=== PATIENT | male | born 1970 | race Caucasian/White ===

== ENCOUNTER 2024-03-26 08:42 | Outpatient (CLI) | payer OTHER, SELFPAY ==
--- NOTE | 2024-03-26 10:57 | W.ANESCHARGE ---
Anesthesia Charges Start Date/Time Anesthesia Start Date: 03/26/24 Anesthesia Start Time: 10:25 Stop Date/Time Anesthesia Stop Date: 03/26/24 Anesthesia Stop Time: 10:54
--- NOTE | 2024-03-26 11:22 | W.ANESCHARGE ---
Anesthesia Charges Start Date/Time Anesthesia Start Date: 03/26/24 Anesthesia Start Time: 10:25 Stop Date/Time Anesthesia Stop Date: 03/26/24 Anesthesia Stop Time: 10:54
== END 2024-03-26 08:43 | disposition home or self-care (01) ==
PROVIDERS: PCP Family Medicine; Visit Provider Internal Medicine Gastroenterology
DX: Z12.11 Encounter for screening for malignant neoplasm of colon (principal); D12.8 Benign neoplasm of rectum; Z86.0101 Personal history of adenomatous and serrated colon polyps
CPT/HCPCS: 00811; 45385; 88305; J2704

== ENCOUNTER 2024-10-25 19:43 | Emergency (ER) | payer OTHER, SELFPAY ==
--- OUTSIDE RECORDS SUMMARY | 2024-10-25 19:46 | XMS_ITS | Clinical Summary ---
Author Organization [facility] Address [address] [place] [address] Care Team Providers Care Bindery Assistant Name Role Phone Mami Rich DO Primary Care Provider Allergies Active Allergy Reactions Criticality Noted Date Comments Ragweed 06/10/2007 Medications aspirin (ECOTRIN) 81 mg enteric coated tablet Take 1 tablet by mouth once daily with a meal. 0 7 Active blood-glucose meterIndications :Type 2 diabetes mellitus without complication, without long-term current use of insulin (HC) Dispense meter, test strips, lancets covered by pt ins. E11.9 NIDDM type II - Test 2 times/day. Reason: High A1C 1 Device 8 Active meclizine (ANTIVERT) 12.5 mg tablet 1 Active polyethylene glycol-electroly te (GOLYTELY) 236-22.74-6.74 -5.86 gram suspensionIndica tions:History of colonic polyps Drink 2 liters the day before colonoscopy and 2 liters 6 hours before colonoscopy appointment 4000 mL 4 Active atorvastatin (LIPITOR) 10 mg tabletIndication s:Type 2 diabetes mellitus without complication, without long-term current use of insulin (HC) Take 1 Tablet (10 mg) by mouth once daily with evening meal. 90 Tablet 3 4 Active semaglutide (OZEMPIC) 1 mg/dose (4 mg/3 mL) subcutaneous penIndications:T ype 2 diabetes mellitus without complication, without long-term current use of insulin (HC) Inject 1 mg subcutaneous once weekly. 9 mL 4 4 Active metroNIDAZOLE 0.75 % gelIndications:R osacea, unspecified Apply topically to affected area(s) two times daily. 45 g 3 4 Active Active Problems Problem Noted Date Diagnosed Date History of patellar fracture 04/23/2024 Patellofemoral arthritis of right knee 5 Loose body in knee, right 04/23/2024 Right shoulder pain 10/27/2018 Acute bursitis of right shoulder 10/27/2018 Capsulitis of right shoulder 10/27/2018 Erectile dysfunction following radical prostatec enriqueta 04/30/2017 Elevated PSA 02/28/2016 Hyperlipidemia LDL goal < 100 01/17/2015 Diabetes mellitus type 2, uncomplicated 01/18/20 15 Personal history of colonic polyps 04/09/2013 Overview (03/31/2024): Colonoscopy 03/2013 normal repeat in 5 years Colonoscopy 02/2018 polyp, repeat in 5 years Colonoscopy 03/2024 TA, repeat in 7 years Resolved Problems Problem Noted Date Diagnosed Date Resolved Date Prostate cancer 07/15/2016 07/24/2023 Encounters Date Type Department Care Team Description 09/15/2024 Orders Only [facility] Scanner 1 scan: (1-Ord) TAREEN DERMATOLOGY, SNIP BIOPSY- LT LATERAL SUPERIOR EYELID, 09/15/2024 from Last 3 Months Immunizations Immunization Administration Dates Next Due COVID-19 vaccine ([employer] NTAeternusLED 30mcg/0.3mL) PF, MDV 12/11/2020,11/20/2020 INFLUENZA, IIV3 PF (AGE >= 6 MO) 02/27/2024 Influenza A (H1N1), Inactiva joshua (Age >=3 Years) 05/19/2009 Influenza, IIV3 (Age >=3 years) 01/04/20 17,03/14/2014,01/22/2012,2009 Influenza, IIV4 02/01/2023, 1,06/12/2020,2018,11/22/2016,12/29/2015,01/13/2013 Influenza,CCIIV4 PRESERV FREE 01/02/2018 Pneumococcal Poly,23-Valent (Pneumovax) 10/29/2019 Td, Preservative Free (age > = 7 Years) 06/24/2022 Tdap 01/24/2012 Zoster (Shingrix-RZV, recombinant) 09/10/2021, Family History Medical History Relation Name Comments Diabetes Father b 1946 Heart Disease Father B[place]ass 2010 Other Mother d 59 MS cassie elliott Diabetes Paternal Grandfather Diabetes Paternal Grandmother Heart Disease Paternal Uncle 54 Diabetes Sister gestational dm Relation Name Status Comments Father Mother Paternal Grandfather Paternal Grandmother Paternal Uncle Sister Social History Tobacco Use Types Packs/Day Years Used Date Smoking Tobacco: Never Smokeless Tobacco: Never Tobacco Cessation:Counseling Given: Yes Alcohol Use Standard Drinks/Week Comments Yes 0 (1 standard drink = 0.6 oz pure alcohol) 2 drinks per week or less noted 06/01/24 PHQ-2 Answer Date Recorded PHQ-2 TOTAL SCORE 0 02/27/2024 Social Connections Answer Date Recorded Do you often feel lonely or isolated from those around you? 0 02/13/2024 Financial Resource Strain Answer Date R ecorded Difficulty of Paying Living Expenses 3 02/13/2024 Difficulty of Paying Living Expenses Not on file 02/13/2024 Food Insecurity Answer Date Recorded Do you worry your food will run out before you are able to buy more? 1 02/13/2024 Transportation Needs Answer Date Record ed Does lack of transportation keep you from medica l appointments? 1 02/13/2024 Does lack of transportation keep you from work, meetings or getting things that you need? 1 02/13/2024 Housing Stability Answer Date Recorded What is your housing situation today? 1 02/13/2024 Utilities Answer Date Recorded Do you have trouble paying f or utilities (for example, heat, electricity, water, phone)? 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 Respiratory Rate 18 06/12/2020 12:30 PM [employer] CAR [employer]IVER Oxygen Saturation 100% 06/01/2024 3:07 PM 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 DRIVER Inhaled Oxygen Concentration - - Weight 99.6 kg (219 lb 9.6 oz) 06/01/2024 3:07 P M [employer] Height 195.6 cm (6' 5) 02/27/2024 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 Body Mass Index 26.04 02/27/2024 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 Plan of Treatment Health Maintenance Due Date Last Done Comments HIV for age 15-65 08/28/1983 Pneumococcal series for age 50+ (2 of 2 - PCV) 10/28/2020 10/29/2019 COVID-19 vaccine series (3 - 2023- season) 2023 12/11/2020, 11/20/2020 Influenza Vaccine (#1) 2024 , 02/01/2023, 06/14/2020, Additional history exists BMI (ht and wt on same day) for age 18+ 02/26/2025 02/27/2024, 09/10/2021, 03/12/2021, Additional history exists Depression screening for age 12+ 02/26/2025 02/27/2024, 07/23/2023, 09/10/2021, Additional history exists Lipids for age 45-75 02/26/2029 02/27/2024, 06/24/2022, 09/07/2021, Additional history exists Colonoscopy through age 75 03/26/203103/26, 03/26/2024, 03/06/2018, Additional history exists Tetanus booster 06/24/2032 06/24/2022, 01/24/2012 Hepatitis C screening for ag e 18-79 Completed 12/23/2014, 03/25/2013 Zoster (shingles) series for age 50+ Completed 09/10/2021, 06/01/2021 Procedures Procedure Name Priority Date/Time Associated Diagnosis Comments SCAN-OPERATIVE/PROCE DURE REPORT 09/15/2024 12:00 AM CDT COLONOSCOPY SCREENING Routine 03/26/2024 8:05 AM FLAG CAR DRIVER History of colon polyps LIPID PANEL W REFLEX MEASURED LDL Routine 02/27/2024 3:37 PM FLAG CAR DRIVER Hyperlipidemia LDL goal < 100 ANTI HCV Routine 12/23/2014 8:42 AM CDT Exposure to hepatitis C from Last 3 Months or Most Recently Relevant to Health Maintenance Results * SCAN-OPERATIVE/PROCEDURE REPORT (09/15/2024 12:00 AM CDT) us Scanner OTHER Final Result * SCAN-COLONOSCOPY (03/26/2024 12:00 AM FLAG CAR DRIVER) us Scanner OTHER Final Result * (ABNORMAL) LIPID PANEL W REFLEX MEASURED LDL (02/27/2024 3:37 PM FLAG CAR DRIVER) CHOLESTEROL, TOTAL 192 <200 mg/dL [facility] HDL CHOLESTEROL 39(L) > OR = 40 mg/dL [facility] TRIGLYCERIDES 173(H) <150 mg/dL [facility] LDL-CHOLESTEROL 124(H) mg/dL (calc) [facility] Comment: Reference range: <100 Desirable range <100 mg/dL for primary prevention; <70 mg/dL for patients with CHD or diabetic patients with > or = 2 CHD risk factors. LDL-C is now calculated using the Ras-Foster calculation, which is a validated novel method providing better accuracy than the Friedewald equation in the estimation of LDL-C. Ras SS et al. JADA. 2013;310(19): 4409-1166 (http://education.[employer]/faq/HMD999) CHOL/HDLC RATIO 4.9 <5.0 (calc) [facility] NON HDL CHOLESTEROL 153(H) <130 mg/dL (calc) [facility] Comment: For patients with diabetes plus 1 major ASCVD risk factor, treating to a non-HDL-C goal of <100 mg/dL (LDL-C of <70 mg/dL) is considered a therapeutic option. Blood BLOOD SPECIMEN / Unknown 02/27/2024 3:37 PM FLAG CAR DRIVER 02/27/2024 3:37 PM FLAG CAR DRIVER us Mami Elli Detert DO CHEMISTRY Final Resul t [facility] [address] [place] [address], [place] [phone] [facility] [address] [place] [address] * ANTI HCV (12/23/2014 8:42 AM CDT) HEPATITIS C ANTIBODY Non-Reacti ve Non-Reacti ve 12/23/2014 2:00 PM CDT [facility] Blood specimen (specimen) BLOOD SPECIMEN / Unknown Butterfly / Unknown 12/23/2014 8:42 AM CDT 12/23/2014 8:42 AM CDT Narrative [facility] - 12/23/2014 2:00 PM CDT Antibodies to HCV not detected; does not exclude the possibility of exposure to HCV. Mami Christ DO SEND OUTS Final Resul t [facility] [address] [place] [address], [place] from Last 3 Months or Most Recently Relevant to Health Maintenance Insurance [facility] [place] [address] [facility] * Guarantor: [employer] Account Type Relation to Patient Date of Phone Billing Address Occ Health/Bere MANJIT REEVES [address] [place] [id number] Advance Directives Documents on File Type Date Recorded Patient Virtual Assistant For Advertisers Expl anation Healthcare Directive 11/22/2014 1:52 PM BRAIN, 11/14/2014 * Full Code (Latest Code Status on File) Date Activated Date Inactivated Comments 09/23/2016 5:26 PM 09/24/2016 5:29 PM * Full Code Date Activated Date Inactivated Comments 09/23/2016 9:26 AM 09/23/2016 4:50 PM Care Teams Bindery Assistant Relationship Specialty Start Date End [place] [address] [place] [address] PCP - General Family Practice 11/15/14
[2024-10-25 20:22] VITALS: BP 118/74; PULSE 88; RESP 16; TEMP 36.4; O2SAT 99; BMI 25.1
--- NOTE | 2024-10-25 20:41 | CRLHL7_ITS ---
For Patients: As a result of the Cures Act, medical imaging exams and procedure reports are released immediately into your electronic medical record. You may view this report before your referring provider. If you have questions, please contact your health care provider. INDICATION: Toe infection. TECHNIQUE: Right foot/toes 3 view. COMPARISON: None. FINDINGS: Bones: No acute fracture or dislocation. No definite radiographic evidence of osteomyelitis. Plantar calcaneal spur. Joint spaces: Degenerative changes of the interphalangeal joints. Soft tissues: Soft tissue swelling in the distal aspect of the 2nd digit. No soft tissue gas. IMPRESSION: Soft tissue swelling in the distal aspect of the 2nd digit. No definite radiographic evidence of osteomyelitis. Dictated by Ivelisse Elder MD @ 10/25/2024 9:55:18 PM (Electronically Signed)
--- NOTE | 2024-10-25 21:09 | ED.SKABFB ---
HPI - Skin/Abscess/Foreign Bdy General Date Seen: 10/25/24 Chief complaint: Skin/Abscess/Foreign Body Stated complaint: blister right foot big toe Time Seen by Provider: 10/25/24 20:31 Source: patient Mode of arrival: ambulatory Limitations: no limitations History of Present Illness HPI narrative: Patient is the type 2 diabetic and presents here with his significant other for a possible infection of his right 2nd toe it has been there and noted that he only had redness tonight, there has been a callus there in the for a while, does not remember getting a foreign body in there, no history of previous amputations, sugars have been normal as far as he knows, no history of nausea vomiting fevers chills or other issues. 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 There was an ulcer on medial side of his toe. He said this popped yesterday Tetanus up to date: yes Severity: mild Relieving factors: none Associated symptoms: denies other symptoms Treatments prior to arrival: none Related Data Home Medications ?Medication ?Instructions ?Recorded ?Confirmed atorvastatin 10 mg tablet 10 mg PO QPM 10/25/24 10/25/24 doxycycline hyclate 100 mg capsule 100 mg PO BID 10/25/24 10/25/24 semaglutide 1 mg/dose (4 mg/3 mL) 1 mg subcut 10/25/24 subcutaneous pen injector (Ozempic) Allergies Allergy/AdvReac Type Severity Reaction Status Date / Time No Known Drug Allergies Allergy Verified 03/26/24 10:36 Review of Systems Status of ROS: Reports: 10 or more systems reviewed and unremarkable except as noted in History and below PFSH PFSH Social History Smoking Status: Never smoker Do you use any of these nicotine containing products: None Second hand tobacco smoke exposure: No How often do you have a drink containing alcohol: monthly or less AUDIT-C Alcohol total score: 1 Non-prescribed substance use: denies use Exam Narrative: Exam Narrative: On examination there is indeed redness of his right 2nd toe, from the distal area up to his D IP joint, there is a callus there also, also has onychogryphosis no redness to the top of his foot he has good sensation noted, pulses DP and posterior tibial normal. No significant swelling, or rash. Const: Vital Signs, click to edit/add: Vital Signs - 24 hr 10/25/24 20:22 10/25/24 22:21 Temperature 97.5 F L Pulse Rate [Pulse Oximeter] 88 71 Respiratory Rate 16 16 Blood Pressure [Ri ght Upper Arm] 118/74 126/71 Pulse Oximetry 99 Oxygen Delivery Me thod Room Air Course Vital Signs Vital signs: Initial Vital Signs Temperature 97.5 F L 10/25/24 20:22 Temperature Source Temporal Artery Scan 10/25/24 20:22 Pulse Rate 88 10/25/24 20:22 Pulse Rhythm Regular 10/25/24 20:22 Respiratory Rate 16 10/25/24 20:22 Blood Pressure 118/74 10/25/24 20:22 Blood Pressure Mean 88 10/25/24 20:22 Blood Pressure Position Sitting 10/25/24 20:22 Pulse Oximetry 99 10/25/24 20:22 Oxygen Delivery Method Room Air 10/25/24 20:22 Vital Signs Temperature 97.5 F L 10/25/24 20:22 Pulse Rate 88 10/25/24 20:22 Respiratory Rate 16 10/25/24 20:22 Blood Pressure 118/74 10/25/24 20:22 Pulse Oximetry 99 10/25/24 20:22 Oxygen Delivery Method Room Air 10/25/24 20:22 Temperature 97.5 F L 10/25/24 20:22 Pulse Rate 71 10/25/24 22:21 Respiratory Rate 16 10/25/24 22:21 Blood Pressure 126/71 10/25/24 22:21 Pulse Oximetry 99 10/25/24 20:22 Oxygen Delivery Method Room Air 10/25/24 20:22 MDM - Skin/Abscess/Foreign Bdy MDM Narrative Medical decision making narrative: We will do an x-ray to assess the bone, but he will likely need some antibiotics, probably start him on some Keflex, again to follow up with primary care physician or Abdifatah reyes from Podiatry over at the [facility] Discharge Plan Discharge Clinical Impression: Cellulitis, Diabetes mellitus Patient Disposition: Home w/ Parent or Adult Condition: Stable Instructions: Cellulitis (ED), Foot Care for People with Diabetes (DC), Type 2 Diabetes Management for Adults (ED) Additional Instructions: Home, rest, antibiotics as directed follow up in 48 hours with primary care, consider seeing Dr. Carissa reyes at [facility], otherwise primary care, return here if increasing redness fevers chills or other worsening signs and symptoms. Bacitracin daily to the area. Your xray is negative for bone infection. But given your diabetic we need to watch this closely. Prescription given for a good broad-spectrum antibiotic, he can pick this up in [facility] Keflex 500 mg 3 times a day for the next 10 days Activity Level: Light activity Discharge Diet: Diabetic Prescriptions: No Action doxycycline hyclate 100 mg capsule 100 mg PO BID atorvastatin 10 mg tablet 10 mg PO QPM Ozempic 1 mg/dose (4 mg/3 mL) pen injector 1 mg subcut Follow Up/Referrals: Mami Rich DO [Primary Care Provider, Family Practice] Stand Alone Forms: [employer] Info Instructions
[2024-10-25 22:21] VITALS: BP 126/71; PULSE 71; RESP 16
== END 2024-10-25 22:22 | disposition home or self-care (01) ==
PROVIDERS: Emergency Provider Family Medicine; PCP Family Medicine
DX: L03.115 Cellulitis of right lower limb (principal); E11.628 Type 2 diabetes mellitus with other skin complications
CPT/HCPCS: 73660; 99283